=== PATIENT | male | born 1990 | race Caucasian/White ===

== ENCOUNTER 2022-11-05 08:57 | Emergency (ER) | payer OTHER, SELFPAY ==
[2022-11-05 09:10] VITALS: BP 157/98; PULSE 65; RESP 18; TEMP 36.4; O2SAT 100; BMI 23.7
--- NOTE | 2022-11-05 09:20 | ED_ITS ---
HPI - Head Injury General Chief complaint: Head Injury Stated complaint: poss Concussion and broken facial bones T-1 Time Seen by Provider: 11/05/22 09:06 Source: patient Mode of arrival: Ambulatory Limitations: no limitations History of Present Illness HPI Narrative: Patient is a 32-year-old otherwise healthy male who yesterday was hit in the head while playing soccer. He had no loss of consciousness. He did sustain a bruise above his right eye. Has also had a headache. Has not had any vomiting. He did sleep last evening but it was interrupted. No other injuries from the event. Has taken Tylenol at home. No prior head injuries. No vision changes. No dental injuries. No nosebleeds. Related Data Allergies Allergy/AdvReac Type Severity Reaction Status Date / Time No Known Drug Allergies Allergy Verified 11/05/22 09:14 Review of Systems Constitutional Constitutional: Reports system reviewed and no additional complaints, except as documented Eyes Eyes: Reports system reviewed and no additional complaints, except as documented ENT Ears, Nose, Mouth, and Throat: Reports system reviewed and no additional complaints, except as documented Gastrointestinal Gastrointestinal: Reports system reviewed and no additional complaints, except as documented Integumentary/Breasts Skin/Breast: Reports system reviewed and no additional complaints, except as documented Neurologic Neurologic: Reports system reviewed and no additional complaints, except as documented Hematologic/Lymphatic On Anticoagulants: No Exam Initial Vital Signs Initial Vital Signs: Vital Signs Temperature 97.6 F 11/05/22 09:10 Pulse Rate 65 11/05/22 09:10 Respiratory Rate 18 11/05/22 09:10 Blood Pressure 157/98 H 11/05/22 09:10 Pulse Oximetry 100 11/05/22 09:10 Oxygen Delivery Method Room Air 11/05/22 09:10 Const General: cooperative, comfortable and No ill appearing HENAR Head: normal to inspection and normocephalic Ears: hearing grossly normal bilaterally and TM's normal bilaterally Nose: external nose normal and septum normal Mouth: oral mucosae normal Teeth and gingiva: dentition normal Eyes Pupils: PERRL EOM: EOM intact bilaterally Other: Contusion upper nasal aspect of right eye Skin Other: Contusion of the skin right upper eye Neuro General: patient alert, patient awake, patient oriented x3 and moves all extremities Cognition: normal cognition Speech: speech normal Extrem General: capillary refill normal Scores GCS Freeland coma scale eye opening: Spontaneous John coma scale verbal response: Orientated Freeland coma scale motor response: Obey commands Freeland coma scale total score: 15 Nexus Score for C-Spine Focal Neurologic deficit present: No Midline spinal tenderness present: No Altered level of conciousness present: No Intoxication present: No Distracting Injury Present: No Nexus Criteria for C-spine: 0 Course Vital Signs Vital signs: Vital Signs - 8 hr 11/05/22 09:10 Temperature 97.6 F Pulse Rate 65 Respiratory Rate 18 Blood Pressure 157/98 H Pulse Oximetry 100 Oxygen Delivery Method Room Air MDM - Head Injury MDM Narrative Medical decision making narrative: Patient does have a contusion above his right eye. There are no step-offs noted on the orbital rim. His extraocular muscles are intact without entrapment. Pupils reactive. Low suspicion for intracranial hemorrhage. Low suspicion for skull fracture. We did discuss the possibility of a orbital fracture however given the fact that there are no step-offs in there no entrapment that CT scan is not warranted. We did discuss concussions. We discussed avoidance of hitting his head again and avoidance of activities that cause his symptoms to get worse. We will hold on further workup for now. He was given return precautions. He expressed understanding and agreement. Discharge Plan Departure Patient Disposition: Home Clinical Impression: Closed head injury, Concussion without loss of consciousness, Contusion of eye, right Instructions: Concussion Activity Restrictions/Additional Instructions: You can take Tylenol for any headaches. You need to avoid hitting your head again and avoid activities that make any of your symptoms worse. You can eat like normal and sleep like normal. Return to the emergency department for any new or worsening symptoms. Referrals: Miscellaneous,[facility] [Primary Care Provider] - Stand Alone Forms: Patient Portal/API
== END 2022-11-05 09:29 | disposition home or self-care (01) ==
PROVIDERS: Emergency Provider Emergency Medicine
DX: S06.0X0A Concussion without loss of consciousness, initial encounter (principal); S00.11XA Contusion of right eyelid and periocular area, initial encounter; W22.8XXA Striking against or struck by other objects, initial encounter; Y93.66 Activity, soccer
CPT/HCPCS: 99281